=== PATIENT | female | born 1995 | race African-American/Black ===

== ENCOUNTER 2022-02-24 01:56 | Emergency (ER) | payer OTHER, SELFPAY ==
[2022-02-24 02:23] VITALS: BP 150/92; PULSE 96; RESP 16; TEMP 36.6; O2SAT 97; BMI 32.9
--- OUTSIDE RECORDS SUMMARY | 2022-02-24 03:06 | XMS_ITS | Continuity of Care Document ---
:1996 Author Organization [facility] ic Address [address] [place] [address]- Care Team Providers Name Role Phone Roni ROLDAN, Britton Simon Primary Care Physician Encounter [facility] [place] Date(s): 05/20/19 - 05/30/[address] [address]- [facility] Attending Physician: Alden Palma Admitting Physician: Alden Palma Referring Physician: Alden Palma Allergies, Adverse Reactions, Alerts Substance Reaction Severity Status NKA Active Immunizations Given and Recorded Vaccine Date Status Refusal Reason tetanus/diphtheria/pertussis, acel(Tdap) 03/23/19 Given tetanus/diphtheria/pertussis, acel(Tdap) 03/12/15 Given influenza virus vaccine, inactivated 01/26/19 Given influenza virus vaccine, inactivated 03/12/15 Given Human Papillomavirus Vaccine1 04/12/15 Given 1Result Comment: [04/12/2015] given by Susana Fonseca CNM Medications Multivitamins with Folic Acid 1 mg oral tablet 1 tablet, By Mouth, Daily, # 90 tablet, 3 Refills, Maintenance, 11/02/18 14:20:00 EDT, Tablet, 1 tablet By Mouth Daily Start Date: 11/02/18 Status: Ordered Social History Social History Type Response Smoking Status Never (less than 100 in life time) entered on: 11/02/18 Sex Female
--- OUTSIDE RECORDS SUMMARY | 2022-02-24 03:06 | XMS_ITS | Continuity of Care Document ---
:1996 Author Organization [facility] Address [address] [place] [address]- Care Team Providers Name Role Phone Roni ROLDAN, Britton Simon Primary Care Physician [place] [facility] [place] - 07/15/[address] [address]- [facility] Encounter Diagnosis Gonorrhea (Final) - 07/15/19 Discharge Disposition: A-D/C Home Attending Physician: Jayson ROLDAN, Maddison Freitas Admitting Physician: Maddison Tyler MD Referring Physician: Not on Staff, Referring MD Allergies, Adverse Reactions, Alerts Substance Reaction Severity Status NKA Active Immunizations Given and Recorded Vaccine Date Status Refusal Reason tetanus/diphtheria/pertussis, acel(Tdap) 03/23/19 Given tetanus/diphtheria/pertussis, acel(Tdap) 03/12/15 Given influenza virus vaccine, inactivated 01/26/19 Given influenza virus vaccine, inactivated 03/12/15 Given Human Papillomavirus Vaccine1 04/12/15 Given 1Result Comment: [04/12/2015] given by Susana Fonseca [facility] Medications acetaminophen 325 mg oral tablet 650 mg, By Mouth, Every 6 hours, PRN, # 60 tablet, Refills 0, Tot. Refills 0, Maintenance, Pain , Mild, 06/25/19 6:50:00 EDT, Route to Pharmacy Electronically, [facility]/pharmacy #[id number], 160, cm, 06/25/19 2:10:00 EDT, Height, 80.5, kg, 06/23/19 13:35:00 EDT,... Start Date: 06/25/19 Status: Orderedibuprofen 800 mg oral tablet 800 mg, 1, tablet, By Mouth, Every 8 hours, PRN, # 60 tablet, Refills 0, Tot. Refills 0, Maintenance, Pain , Moderate, 06/25/19 6:50:00 EDT, Route to Pharmacy Electronically, [facility]/pharmacy #[id number], 160, cm, 06/25/19 2:10:00 EDT, Height, 80.5, kg, ... Start Date: 06/25/19 Status: OrderedPrenatal Multivitamins with Folic Acid 1 mg oral tablet 1 tablet, By Mouth, Daily, # 90 tablet, 3 Refills, Maintenance, 11/02/18 14:20:00 EDT, Tablet, 1 tablet By Mouth Daily Start Date: 11/02/18 Status: Ordered Vital Signs Most recent to oldest [Reference Range]: 1 2 Height 160 cm 160 cm (07/15/19 4:46 PM) (07/15/19 2:05 PM) Weight 71.5 kg 71.5 kg (07/15/19 4:46 PM) (07/15/19 2:05 PM) Oxygen Saturation [94-100 %] 100 % 99 % (07/15/19 4:46 PM) (07/15/19 2:05 PM) Pulse Rate [55-90 bpm] 88 bpm 110 bpm (07/15/19 4:46 PM) *H* (07/15/19 2:05 PM) Body Mass Index [18.5-24.99] 27.93 27.93 *H* *H* (07/15/19 4:46 PM) (07/15/19 2:05 PM) Blood Pressure [90-138/55-84 mm Hg] 138/80 mm Hg 128/ 78 mm Hg (07/15/19 4:46 PM) (07/15/19 2:05 PM) Respiratory Rate [16-30 br/min] 18 br/min 18 br/mi n (07/15/19 4:46 PM) (07/15/19 2:05 PM) Temperature [96.8-100.4 DegF] 98.2 DegF 98.2 DegF (07/15/19 4:46 PM) (07/15/19 2:05 PM) Mode of Delivery (Oxygen) Room air Room air (07/15/19 4:46 PM) (07/15/19 2:05 PM) Blood pressure sites Arm, right Arm, left (07/15/19 4:46 PM) (07/15/19 2:05 PM) Temperature Route Oral Oral (07/15/19 4:46 PM) (07/15/19 2:05 PM) Dry Weight 71.5 kg 71.5 kg (07/15/19 4:46 PM) (07/15/19 2:05 PM) Weight Obtained Via Standing scale (07/15/19 2:05 PM) Dry Weight Obtained Via Standing scale (07/15/19 2:05 PM) Social History Social History Type Response Smoking Status Never (less than 100 in life time) entered on: 11/02/18 Sex
--- OUTSIDE RECORDS SUMMARY | 2022-02-24 03:06 | XMS_ITS | Continuity of Care Document ---
:1996 Author Organization [facility] Address Unavailable , Care Team Providers Name Role Phone Ronni CHEN, Pratibha Primary Care Physician [place] [facility] [place] 06/14/21 [facility] Allergies, Adverse Reactions, Alerts No Known Allergies Immunizations Given and Recorded Vaccine Date Status Refusal Reason tetanus/diphtheria/pertussis, acel(Tdap) 03/23/19 Given tetanus/diphtheria/pertussis, acel(Tdap) 03/12/15 Given influenza virus vaccine, inactivated 01/26/19 Given influenza virus vaccine, inactivated 03/12/15 Given Human Papillomavirus Vaccine1 04/12/15 Given 1Result Comment: [04/12/2015] given by Susana Fonseca [facility] Medications acetaZOLAMIDE 500 mg oral capsule, extended release 500 mg, 1, capsule, By Mouth, 2 times a day, # 180 capsule, Refills 3, Tot. Refills 3, Maintenance, 05/29/21 9:50:00 EST, Route to Pharmacy Electronically, [facility]/pharmacy #[id number], Partial fill upon patientrequest if the prescription is for a schedule II... Start Date: 05/29/21 Status: Ordered Problem List Condition Effective Dates Status Health Status Informant Anxiety(Confirmed) Active IIH (idiopathic intracranial Active hypertension)(Confirmed) Papilledema of both eyes(Confirmed) Active Obese class I(Confirmed) Active Social History Social History Type Response Smoking Status Never (less than 100 in life time) entered on: 11/02/18 Sex
--- OUTSIDE RECORDS SUMMARY | 2022-02-24 03:06 | XMS_ITS | Continuity of Care Document ---
:1996 Author Organization [facility] ic Address [address] [place] [address]- Care Team Providers Name Role Phone Roni ROLDAN, Britton Simon Primary Care Physician Encounter [facility] [place] Date(s): 04/22/19 - 07/24/[address] [address]- [facility] Attending Physician: Not on Staff, Attending MD Allergies, Adverse Reactions, Alerts Substance Reaction Severity Status NKA Active Immunizations Given and Recorded Vaccine Date Status Refusal Reason tetanus/diphtheria/pertussis, acel(Tdap) 03/23/19 Given tetanus/diphtheria/pertussis, acel(Tdap) 03/12/15 Given influenza virus vaccine, inactivated 01/26/19 Given influenza virus vaccine, inactivated 03/12/15 Given Human Papillomavirus Vaccine1 04/12/15 Given 1Result Comment: [04/12/2015] given by Susana Fonseca [facility] Medications acetaminophen 325 mg oral tablet 650 mg, By Mouth, Every 6 hours, PRN, # 60 tablet, Refills 0, Tot. Refills 0, Maintenance, Pain , Mild, 06/25/19 6:50:00 EDT, Route to Pharmacy Electronically, [facility]/pharmacy #[id number], 160, cm, 06/25/19 2:10:00 EDT, Height, 80.5, kg, 06/23/19 13:35:00 EDT,... Start Date: 06/25/19 Status: Orderedibuprofen 800 mg oral tablet 800 mg, 1, tablet, By Mouth, Every 8 hours, PRN, # 60 tablet, Refills 0, Tot. Refills 0, Maintenance, Pain , Moderate, 06/25/19 6:50:00 EDT, Route to Pharmacy Electronically, [facility]/pharmacy #[id number], 160, cm, 06/25/19 2:10:00 EDT, Height, [...]
--- OUTSIDE RECORDS SUMMARY | 2022-02-24 03:06 | XMS_ITS | Continuity of Care Document ---
:1996 Author Organization [facility] Address [address] [place] [address]- Care Team Providers Name Role Phone Not on Staff, PCP Primary Care Physician Unavailable Encounter [facility] Date(s): 12/09/19 - 01/08/20 [facility] [address] [place] [address]- [facility] Allergies, Adverse Reactions, Alerts Substance Reaction Severity Status NKA Active Immunizations Given and Recorded Vaccine Date Status Refusal Reason tetanus/diphtheria/pertussis, acel(Tdap) 03/23/19 Given tetanus/diphtheria/pertussis, acel(Tdap) 03/12/15 Given influenza virus vaccine, inactivated 01/26/19 Given influenza virus vaccine, inactivated 03/12/15 Given Human Papillomavirus Vaccine1 04/12/15 Given 1Result Comment: [04/12/2015] given by Susana Fonseca CNM Social History Social History Type Response Smoking Status Never (less than 100 in life time) entered on: 11/02/18 Sex
--- OUTSIDE RECORDS SUMMARY | 2022-02-24 03:06 | XMS_ITS | Continuity of Care Document ---
:1996 Author Organization [facility] ic Address [address] [place] [address]- Care Team Providers Name Role Phone Roni ROLDAN, Britton Simon Primary Care Physician En[place] [facility] [place] Date(s): 06/25/19 - 07/28/[address] [address]- [facility] Attending Physician: Not on Staff, Attending MD Allergies, Adverse Reactions, Alerts Substance Reaction Severity Status NKA Active Immunizations Given and Recorded Vaccine Date Status Refusal Reason tetanus/diphtheria/pertussis, acel(Tdap) 03/23/19 Given tetanus/diphtheria/pertussis, acel(Tdap) 03/12/15 Given influenza virus vaccine, inactivated 01/26/19 Given influenza virus vaccine, inactivated 03/12/15 Given Human Papillomavirus Vaccine1 04/12/15 Given 1Result Comment: [04/12/2015] given by Susana Fonseca [facility] Medications acetaminophen 325 mg oral tablet 650 mg, By Mouth, Every 6 hours, PRN, # 60 tablet, Refills 0, Tot. Refills 0, Maintenance, Pain , Mild, 06/25/19 6:50:00 EDT, Route to Pharmacy Electronically, [facility]/pharmacy #[id number], 160, cm, 06/25/19 2:10:00 EDT, Height, 80.5, kg, 06/23/19 13:35:00 EDT,... Start Date: 06/25/19 Status: Orderedibuprofen 800 mg oral tablet 800 mg, 1, tablet, By Mouth, Every 8 hours, PRN, # 60 tablet, Refills 0, Tot. Refills 0, Maintenance, Pain , Moderate, 06/25/19 6:50:00 EDT, Route to Pharmacy Electronically, [facility]/pharmacy #[id number], 160, cm, 06/25/19 2:10:00 EDT, [...]
--- OUTSIDE RECORDS SUMMARY | 2022-02-24 03:06 | XMS_ITS | Continuity of Care Document ---
:1996 Author Organization [facility] ic Address [address] [place] [address]- Care Team Providers Name Role Phone Roni ROLDAN, Britton Simon Primary Care Physician Encounter [facility] [place] Date(s): 04/22/19 - 07/17/[address] [address]- [facility] Attending Physician: Not on Staff, Attending MD Allergies, Adverse Reactions, Alerts Substance Reaction Severity Status NKA Active Immunizations Given and Recorded Vaccine Date Status Refusal Reason tetanus/diphtheria/pertussis, acel(Tdap) 03/23/19 Given tetanus/diphtheria/pertussis, acel(Tdap) 03/12/15 Given influenza virus vaccine, inactivated 01/26/19 Given influenza virus vaccine, inactivated 03/12/15 Given Human Papillomavirus Vaccine1 04/12/15 Given 1Result Comment: [04/12/2015] given by Susana Fonseca [facility] Medications acetaminophen 325 mg oral tablet 650 mg, By Mouth, Every 6 hours, PRN, # 60 tablet, Refills 0, Tot. Refills 0, Maintenance, Pain , Mild, 06/25/19 6:50:00 EDT, Route to Pharmacy Electronically, [facility]/pharmacy #[id number], 160, cm, 06/25/19 2:10:00 EDT, Height, 80.5, kg, 06/23/19 13:35:00 EDT,... Start Date: 06/25/19 Status: Orderedibuprofen 800 mg oral tablet 800 mg, 1, tablet, By Mouth, Every 8 hours, PRN, # 60 tablet, Refills 0, Tot. Refills 0, Maintenance, Pain , Moderate, 06/25/19 6:50:00 EDT, Route to Pharmacy Electronically, [facility]/pharmacy #[id number], 160, cm, 06/25/19 2:10:00 EDT, [...]
--- OUTSIDE RECORDS SUMMARY | 2022-02-24 03:06 | XMS_ITS | Continuity of Care Document ---
:1996 Author Organization [facility] Address [address] [place] [address]- Care Team Providers Name Role Phone Not on Staff, PCP Primary Care Physician Unavailable [facility]counter [facility] Date(s): 10/22/19 - 10/22/[address] [address]- [facility] Encounter Diagnosis Anxiety (Final) - 10/22/19 Discharge Disposition: A-D/C Home Attending Physician: Luna Oswald MD Admitting Physician: Luna Oswald MD Referring Physician: Not on Staff, Referring MD Allergies, Adverse Reactions, Alerts Substance Reaction Severity Status NKA Active Immunizations Given and Recorded Vaccine Date Status Refusal Reason tetanus/diphtheria/pertussis, acel(Tdap) 03/23/19 Given tetanus/diphtheria/pertussis, acel(Tdap) 03/12/15 Given influenza virus vaccine, inactivated 01/26/19 Given influenza virus vaccine, inactivated 03/12/15 Given Human Papillomavirus Vaccine1 04/12/15 Given 1Result Comment: [04/12/2015] given by Susana Fonseca [facility] Medications No Known Medications Vital Signs Most recent to oldest 1 2 3 [Reference Range]: Oxygen Saturation [94-100 %] 100 % 100 % 99 % (10/22/19 7:27 PM) (10/22/19 2:34 PM) (10/22/19 2:1 3 PM) Pulse Rate [55-90 bpm] 67 bpm 92 bpm 86 bpm (10/22/19 7:27 PM) *H* (10/22/19 2:13 PM) (10/22/19 2:34 PM) Blood Pressure [90-138/55-84 mm 122/68 mm Hg 127/70 mm Hg Hg] (10/22/19 7:27 PM) (10/22/19 2:34 PM) Respiratory Rate [16-30 br/min] 16 br/min 18 br/min 16 br/min (10/22/19 7:27 PM) (10/22/19 2:34 PM) (10/22/19 2:1 3 PM) Temperature [96.8-100.4 DegF] 98.3 DegF (10/22/19 2:34 PM) Liters per Minute 0 L/min (10/22/19 2:34 PM) Mode of Delivery (Oxygen) Room air Room air Room a ir (10/22/19 7:27 PM) (10/22/19 2:34 PM) (10/22/19 2:1 3 PM) Blood pressure sites Arm, right (10/22/19 7:27 PM) Temperature Route Oral (10/22/19 2:34 PM) Social History Social History Type Response Smoking Status Never (less than 100 in life time) entered on: 11/02/18 Sex
--- OUTSIDE RECORDS SUMMARY | 2022-02-24 03:06 | XMS_ITS | Continuity of Care Document ---
:1996 Author Organization [facility] ic Address [address] [place] [address]- Care Team Providers Name Role Phone Roni ROLDAN, Britton Simon Primary Care Physician Encounter [facility] [place] Date(s): 04/08/19 - 04/18/[address] [address]- [facility] Attending Physician: Alden Palma Admitting [...] [04/12/2015] given by Susana Fonseca CNM Medications doxylamine 25 mg oral tablet See Instructions, one half tablet 2 x day, # 8 tablet, 1 Refills, Maintenance, 12/08/18 14:49:21 EDT Start Date: 12/08/18 Status: OrderedPrenatal Multivitamins with Folic Acid 1 mg oral tablet 1 tablet, By Mouth, Daily, # 90 tablet, 3 Refills, Maintenance, 11/02/18 14:20:00 EDT, Tablet, 1 tablet By Mouth Daily Start Date: 11/02/18 Status: Ordered Social History Social History Type Response Smoking Status Never (less than 100 in life time) entered on: 11/02/18 Sex Female
--- OUTSIDE RECORDS SUMMARY | 2022-02-24 03:06 | XMS_ITS | Continuity of Care Document ---
:1996 Author Organization [facility] ic Address [address] [place] [address]- Care Team Providers Name Role Phone Shaan ROLDAN, Katerine Muhammad Primary Care Physician Encounter [facility] Date(s): 08/04/19 - 09/03/[address] [address]- [facility] Attending Physician: Alden Palma Admitting [...]
--- OUTSIDE RECORDS SUMMARY | 2022-02-24 03:06 | XMS_ITS | Continuity of Care Document ---
:1996 Author Organization [facility] Address [address] [place] [address]- Care Team Providers Name Role Phone Pratibha Rudolph NP Primary Care Physician Encounter [facility] [place] Date(s): 09/11/21 - 10/11/21 [facility] [address] [address] Attending Physician: Alden Palma Admitting Physician: Alden Palma Referring Physician: AdmtrAlden Allergies, Adverse Reactions, Alerts No Known Allergies Immunizations Given and Recorded Vaccine Date Status Refusal Reason tetanus/diphtheria/pertussis, acel(Tdap) 03/23/19 Given tetanus/diphtheria/pertussis, acel(Tdap) 03/12/15 Given influenza virus vaccine, inactivated 01/26/19 Given influenza virus vaccine, inactivated 03/12/15 Given Human Papillomavirus Vaccine1 04/12/15 Given 1Result Comment: [04/12/2015] given by Susana Fonseca CNM Medications acetaZOLAMIDE 500 mg oral capsule, extended release 500 mg, 1, capsule, By Mouth, 2 times a day, # 180 capsule, Refills 3, Tot. Refills 3, Maintenance, 05/29/21 9:50:00 EST, Route to Pharmacy Electronically, [facility]/pharmacy #[id number], Partial fill upon patientrequest if the [...]
--- OUTSIDE RECORDS SUMMARY | 2022-02-24 03:06 | XMS_ITS | Continuity of Care Document ---
:1996 Author Organization [facility] Address [address] [place] [address]- Care Team Providers Name Role Phone Pratibha Rudolph NP Primary Care Physician Encounter [facility] [place] Date(s): 07/18/20 - 08/17/20 [facility] [address] [place] [address]- Attending Physician: Alden Palma Admitting Physician: Alden [...] Comment: [04/12/2015] given by Susana Fonseca CNM Problem List Condition Effective Dates Status Health Status Informant Anxiety(Confirmed) Active Social History Social History Type Response Smoking Status Never (less than 100 in life time) entered on: 11/02/18 Sex
--- OUTSIDE RECORDS SUMMARY | 2022-02-24 03:06 | XMS_ITS | Continuity of Care Document ---
:1996 Author Organization [facility] Address [address] [place] [address]- Care Team Providers Name Role Phone Roni ROLDAN, Britton Simon Primary Care Physician Encounter [facility] Date(s): 06/23/19 - 06/25/[address] [address]- [facility] Discharge Disposition: A-D/C Home Attending Physician: Henna Malone MD Admitting Physician: Henna Malone MD Referring Physician: Henna Malone MD Allergies, Adverse Reactions, Alerts Substance Reaction Severity Status NKA Active Immunizations Given and Recorded Vaccine Date Status Refusal Reason tetanus/diphtheria/pertussis, acel(Tdap) 03/23/19 Given tetanus/diphtheria/pertussis, acel(Tdap) 03/12/15 Given influenza virus vaccine, inactivated 01/26/19 Given influenza virus vaccine, inactivated 03/12/15 Given Human Papillomavirus Vaccine1 04/12/15 Given 1Result Comment: [04/12/2015] given by Susana Fonseca [facility] Medications acetaminophen 325 mg oral tablet 650 mg, By Mouth, Every 6 hours, PRN, # 60 tablet, Refills 0, Tot. Refills 0, Maintenance, Pain , Mild, 06/25/19 6:50:00 EDT, Route to Pharmacy Electronically, [facility]/pharmacy #[id number], 160, cm, 06/25/19 2:10:00 EDT, Height, 80.5, kg, 06/23/19 13:35:00 EDT,... Start Date: 06/25/19 Status: Orderedibuprofen 800 mg oral tablet 800 mg, 1, tablet, By Mouth, Every 8 hours, PRN, # 60 tablet, Refills 0, Tot. Refills 0, Maintenance, Pain , Moderate, 06/25/19 6:50:00 EDT, Route to Pharmacy Electronically, [facility]/pharmacy #[id number], 160, cm, 06/25/19 2:10:00 EDT, Height, 80.5, kg, ... Start Date: 06/25/19 Status: OrderedPrenatal Multivitamins with Folic Acid 1 mg oral tablet 1 tablet, By Mouth, Daily, # 90 tablet, 3 Refills, Maintenance, 11/02/18 14:20:00 EDT, Tablet, 1 tablet By Mouth Daily Start Date: 11/02/18 Status: Ordered Vital Signs Most recent to oldest 1 2 3 [Reference Range]: Height 160 cm 160 cm 160 cm (06/25/19 8:30 AM) (06/25/19 1:00 AM) (06/24/19 8:5 0 PM) Weight 80.5 kg 80.5 kg (06/23/19 1:35 PM) (06/23/19 10:37 AM) Oxygen Saturation [94-100 %] 99 % 99 % 100 % (06/23/19 2:30 PM) (06/23/19 2:12 PM) (06/23/19 2:0 0 PM) Pulse Rate [55-90 bpm] 91 bpm 80 bpm 91 bpm *H* (06/25/19 1:00 AM) *H* (06/25/19 8:30 AM) (06/24/19 8:50 PM) Body Mass Index [18.5-24.99] 31.45 *>HHI* (06/23/19 1:35 PM) Blood Pressure [90-138/55-84 137/84 mm Hg 134/83 mm Hg 139 /88 mm Hg mm Hg] (06/25/19 8:30 AM) (06/25/19 1:00 AM) *H* (06/24/19 8:50 PM ) Respiratory Rate [16-30 18 br/min 18 br/min 18 br/mi n br/min] (06/25/19 10:07 AM) (06/25/19 10:06 AM) (06/25/19 8 :30 AM) Temperature [96.8-100.4 DegF] 97.8 DegF 98.2 DegF 98 .2 DegF (06/25/19 8:30 AM) (06/24/19 8:50 PM) (06/24/19 3:0 5 PM) Blood pressure sites Arm, right Arm, right Arm, right (06/24/19 3:05 PM) (06/24/19 9:06 AM) (06/23/19 1:3 5 PM) Temperature Route Oral Oral Oral (06/25/19 8:30 AM) (06/24/19 8:50 PM) (06/24/19 3:0 5 PM) Dry Weight 80.5 kg (06/23/19 1:35 PM) Weight Obtained Via Standing scale (06/23/19 10:37 AM) Sensory deficits None (06/23/19 1:35 PM) Mobility assistance Independent (06/23/19 1:35 PM) Social History Social History Type Response Smoking Status Never (less than 100 in life time) entered on: 11/02/18 Sex
--- OUTSIDE RECORDS SUMMARY | 2022-02-24 03:06 | XMS_ITS | Continuity of Care Document ---
:1996 Author Organization [facility] Address Unavailable , Care Team Providers Name Role Phone Pratibha Rudolph NP Primary Care Physician [place] [facility] [place] Date(s): 08/14/21 - 09/13/21 [facility] Attending Physician: Alden Palma Admitting Physician: Alden Palma Referring Physician: AdmtrAlden Allergies, Adverse Reactions, Alerts No Known Allergies Immunizations Given and Recorded Vaccine Date Status Refusal Reason tetanus/diphtheria/pertussis, acel(Tdap) 03/23/19 Given tetanus/diphtheria/pertussis, acel(Tdap) 03/12/15 Given influenza virus vaccine, inactivated 01/26/19 Given influenza virus vaccine, inactivated 03/12/15 Given Human Papillomavirus Vaccine1 04/12/15 Given 1Result Comment: [04/12/2015] given by Susana Fonseca [facility] Medications acetaZOLAMIDE 500 mg oral capsule, extended release 500 mg, 1, capsule, By Mouth, 2 times a day, # 180 capsule, Refills 3, Tot. Refills 3, Maintenance, 05/29/21 9:50:00 EST, Route to Pharmacy Electronically, [facility]/pharmacy #[id number], Partial fill upon patientrequest if the [...]
--- OUTSIDE RECORDS SUMMARY | 2022-02-24 03:07 | XMS_ITS | Continuity of Care Document ---
:1996 Author Organization [facility] Address [address] [place] [address]- Care Team Providers Name Role Phone Roni ROLDAN, Britton Simon Primary Care Physician Encounter [facility] Date(s): 04/08/19 - 04/08/[address] [address]- [facility] Attending Physician: Minerva Smith MD Allergies, Adverse Reactions, Alerts Substance Reaction Severity Status NKA Active Immunizations Given and Recorded Vaccine Date Status Refusal Reason tetanus/diphtheria/pertussis, acel(Tdap) 03/23/19 Given tetanus/diphtheria/pertussis, acel(Tdap) 03/12/15 Given influenza virus vaccine, inactivated 01/26/19 Given influenza virus vaccine, inactivated 03/12/15 Given Human Papillomavirus Vaccine1 04/12/15 Given 1Result Comment: [04/12/2015] given by Susana Fonseca [facility] Medications doxylamine 25 mg oral tablet See [...]
--- OUTSIDE RECORDS SUMMARY | 2022-02-24 03:07 | XMS_ITS | Continuity of Care Document ---
:1996 Author Organization [facility] Address [address] [place] [address]- Care Team Providers Name Role Phone Pratibha Rudolph NP [id number] Date[facility] 04/19/20 - 08/17/20 [facility] [address] [place] [id number]- Attending Physician: Pratibha Rudolph NP Allergies, Adverse Reactions, Alerts Substance Reaction Severity [...]
--- OUTSIDE RECORDS SUMMARY | 2022-02-24 03:07 | XMS_ITS | Continuity of Care Document ---
:1995 Author Organization [facility] Address [address] [place] [address]- Care Team Providers Name Role Phone Pratibha Rudolph NP Primary Care Physician Encounter [facility] Date(s): 05/14/21 - 05/14/[address] [address]- Discharge Disposition: A-D/C Home Attending Physician: Rex Oseguera MD Admitting Physician: Rex Oseguera MD Referring Physician: Not on Staff, Referring MD Allergies, Adverse Reactions, Alerts No Known Allergies Immunizations Given and Recorded Vaccine Date Status Refusal Reason tetanus/diphtheria/pertussis, acel(Tdap) 03/23/19 Given tetanus/diphtheria/pertussis, acel(Tdap) 03/12/15 Given influenza virus vaccine, inactivated 01/26/19 Given influenza virus vaccine, inactivated 03/12/15 Given Human Papillomavirus Vaccine1 04/12/15 Given 1Result Comment: [04/12/2015] given by Susana Fonseca [facility] Medications acetaZOLAMIDE 500 mg oral capsule, extended release 500 mg, 1, capsule, By Mouth, 2 times a day, # 30 capsule, Refills 0, Tot. Refills 0, Maintenance, 05/14/21 19:16:00 EST, Route to Pharmacy Electronically, [facility]/pharmacy #[id number], Partial fill upon patientrequest if the prescription is for a schedule II... Start Date: 05/14/21 Status: Ordered Problem List Condition Effective Dates Status Health Status Informant Anxiety(Confirmed) Active Obese class I(Confirmed) Active Vital Signs Most recent to oldest 1 2 3 [Reference Range]: Height 158 cm 158 cm (05/14/21 6:21 PM) (05/14/21 3:41 PM) Weight 86.5 kg 86.5 kg (05/14/21 6:21 PM) (05/14/21 3:41 PM) Oxygen Saturation [94-100 100 % 100 % 100 % %] (05/14/21 8:30 PM) (05/14/21 6:21 PM) (05/14/21 3:4 1 PM) Pulse Rate [55-90 bpm] 88 bpm 80 bpm 95 bpm (05/14/21 8:30 PM) (05/14/21 6:21 PM) *H* (05/14/21 3:41 PM ) Body Mass Index 34.65 [18.5-24.99] *>HHI* (05/14/21 6:21 PM) Blood Pressure 109/56 mm Hg 124/77 mm Hg 152/84 mm Hg [90-138/55-84 mm Hg] (05/14/21 8:30 PM) (05/14/21 6:21 PM) *H* (05/14/21 3:41 PM ) Respiratory Rate [16-30 16 br/min 16 br/min 20 br/mi n br/min] (05/14/21 8:30 PM) (05/14/21 6:21 PM) (05/14/21 3:4 1 PM) Temperature [96.8-100.4 98.8 DegF 98.5 DegF 98.7 Deg F DegF] (05/14/21 8:30 PM) (05/14/21 3:41 PM) (05/14/21 3:0 7 PM) Mode of Delivery (Oxygen) Room air Room air Room a ir (05/14/21 8:30 PM) (05/14/21 6:21 PM) (05/14/21 3:4 1 PM) Blood pressure sites Arm, left Arm, left Arm, right (05/14/21 8:30 PM) (05/14/21 6:21 PM) (05/14/21 3:4 1 PM) Temperature Route Oral Oral Oral (05/14/21 8:30 PM) (05/14/21 3:41 PM) (05/14/21 3:0 7 PM) Weight Obtained Via Patient/family stated (05/14/21 3:41 PM) Social History Social History Type Response Smoking Status Never (less than 100 in life time) entered on: 11/02/18 Sex
== END 2022-02-24 03:20 | disposition left against medical advice (07) ==
PROVIDERS: Emergency Provider Emergency Medicine
DX: R10.2 Pelvic and perineal pain (principal)
CPT/HCPCS: 99281

== ENCOUNTER 2024-05-19 15:35 | Emergency (ER) | payer OTHER, SELFPAY ==
--- NOTE | ~2024-05-19 | US_ITS ---
CLINICAL HISTORY: lmp 12 13 24, vag bleeding LLQ cramping Early OB ultrasound. Transabdominal and transvaginal images were obtained. Findings: There is an intrauterine gestational sac with a yolk sac and embryo. Estimated gestational age based on crown-rump length 5 weeks 6 days. No cardiac activity is identified. The gestational sac is in the mid to lower portion of the uterus with probable mild hemorrhage in the uterine cavity. There is a probable small complex corpus luteum in the right ovary. Left ovary unremarkable. No significant free fluid is identified. Impression: There is an early intrauterine gestational sac as described. The appearance is suspicious for an in progress however technically indeterminate. Follow-up as clinically warranted. This document has been electronically signed by: Ernie Riggs MD on 05/19/2024 18:13:00
[2024-05-19 15:45] VITALS: BP 148/89; PULSE 89; RESP 20; TEMP 36.3; O2SAT 99; BMI 37.1
--- NOTE | 2024-05-19 16:11 | ED_ITS ---
HPI - Female Genitourinary General Chief complaint: Vaginal Bleeding Stated complaint: 2 +preg test/about an hour ago started bleeding? Time Seen by Provider: 05/19/24 21:40 Source: patient Mode of arrival: ambulatory Limitations: no limitations History of Present Illness ED Provider: HPI Narrative: Patient about 6 weeks LMP 03/26 been having vaginal bleeding and lower abdominal cramps started earlier today past to be clots after the ultrasound , ultrasound showed IUP 5 weeks 6days with sac lying in the lower uterine area with possible hemorrhage in the area patient's blood type is O positive patient is a 6para 2 with 3 MTPs Related Data Allergies Allergy/AdvReac Type Severity Reaction Status Date / Time No Known Allergies Allergy Verified 05/19/24 15:48 Review of Systems 2 Review of Systems: Yes all other systems are reviewed and are negative PMFSH Past Medical History Medical History HTN (hypertension) Social History Social History Smoked in Last 30 Days: No Use of substances other than those prescribed or required for medical reasons: No Advance Directives: No Advance Directives Information Provided: No Do you have a plan to hurt others: No Plan Physical Exam 2 Vital Signs: Vital Signs: Last Vital Signs Temp 98.1 F 05/19/24 21:51 Pulse 96 05/19/24 21:51 Resp 20 05/19/24 21:51 BP 129/67 05/19/24 21:51 Pulse Ox 97 05/19/24 21:51 O2 Del Method Room Air 05/19/24 21:51 BMI result Body Mass Index 37.1 Appearance: Alert. Oriented X3. No acute distress. Eyes: No pallor or icterus ENT: Pharynx normal. Oral Mucosa moist Neck: Normal inspection. Neck supple. CVS: Normal heart rate and rhythm. Pulses normal. Respiratory: No respiratory distress. Equal air entry bilateral, Abdomen: Soft and nontender. Bowel sounds are present, no mass palpable, no CVA tenderness pelvis: Small amount of blood coming out from the os no blood clots noticed Skin: Skin warm and dry. Normal skin color. Normal skin turgor. Extremities: No lower extremity edema. No calf tenderness Neuro: Oriented X 3. Course Course Course Narrative: This is a Rapid Medical Examination (RME) performed by Haroldo Li PA-C in triage. Full HPI, ROS, assessment and treatment plan per primary provider in the Main ED. 28 yo female A3, recent positive test at home (LMP 03/26/24) here for eval of vaginal bleeding that began approx 1 hour ago. reports left lower abd cramping. Plan: labs, preg, US Medical Decision Making Medical Decision Making MDM Narrative: Patient has likely been having miscarriage ultrasound of the pelvis shows IUP with gestational sac lying in the lower uterine area with blood around patient has a OB appointment next finger will follow up Differential Diagnosis Differential Diagnoses: The differential diagnosis associated with the presentation includes Lab Data [facility] Lab Attestation statement: I reviewed the patient's lab results. 05/19/24 16:43 05/19/24 16:43 Labs: Lab Results 05/19/24 Range/Units 16:43 WBC 11.3 H (4.8-10.8) X10*3/uL RBC 4.30 (4.20-5.50) X10*6/uL Hgb 12.7 (12.0-16.0) g/dl Hct 37.4 (37.0-47.0) % MCV 87.0 (80.0-98.0) fL MCH 29.5 (27.0-33.0) pg MCHC 34.0 (31.0-35.0) g/dl RDW 13.0 (11.0-16.0) % Plt Count 271 (160-400) X10*3/uL MPV 9.5 (9.4-12.3) fL Immature Gran % (Auto) 0.4 (0.0-0.4) % Neut % (Auto) 68.5 (45-73) % Lymph % (Auto) 23.6 (20-40) % [place] % (Auto) 6.2 (2-11) % Eos % (Auto) 1.0 (0-4) % Baso % (Auto) 0.3 (0-2) % Lymph # (Auto) 2.7 (1.2-4.9) X10*3/uL [place] # (Auto) 0.7 (0.1-1.2) X10*3/uL Eos # (Auto) 0.1 (0.0-0.4) X10*3/uL Baso # (Auto) 0.0 (0.0-0.2) X10*3/uL Abs Immat Gran (auto) 0.04 H (0.00-0.03) X10*3/uL Absolute Neuts (auto) 7.7 (2.0-8.3) x10*3/uL Absolute Nucleated RBC 0.000 (0.0-0.012) X10*3/uL Nucleated RBC % (auto) 0.0 (0.0-0.2) /100WBC Sodium 138 (135-145) mmol/L Potassium 3.4 (3.3-5.1) mmol/L Chloride 108 (96-108) mmol/L Carbon Dioxide 22 (22-29) mmol/L Anion Gap 11 L (12-20) BUN 5 L (9-16) mg/dL Creatinine 0.70 (0.5-1.4) mg/dL Estim Creat Clear Calc 127.4 Estimated GFR > 60 Random Glucose 80 (60-115) mg/dL Calcium 9.5 (8.4-10.2) mg/dL Magnesium 1.9 (1.6-2.6) mg/dL Total Bilirubin 0.2 (0.0-1.0) mg/dL AST 20 (5-31) U/L ALT 15 (0-31) U/L Alkaline Phosphatase 58 (39-117) U/L Total Protein 8.2 H (6.5-8.0) g/dL Albumin 4.2 (3.5-5.0) g/dL Beta HCG, Quant 1305 mIU/mL Urine Color Yellow Urine Appearance Clear Urine pH 6.0 (5.0-9.0) Ur Specific [place] <= 1.005 (1.005-1.025) Urine Protein Negative (Neg-Trace) mg/dL Urine Glucose (UA) Negative (Negative) mg/dL Urine Ketones Negative (Negative) mg/dL Urine Blood Large (3+) H (Negative) Urine Nitrite Negative (Negative) Ur Leukocyte Esterase Negative (Negative) Urine RBC >20 H (0-2) /HPF Urine WBC 0-5 (0-5) /HPF Ur Squamous Epith Cells 0-2 (0-2) /HPF Urine Bacteria None Seen (None Seen) Hyaline Casts 0-2 (0-2) /LPF Urine Test POSITIVE H (NEGATIVE) Blood Type O Positive Antibody Screen NEGATIVE Radiology Impression Discussion of test interpretation with radiology: I have reviewed the radiologist's reading. Radiologist Impression: [address] [address] Ultrasound Report Signed Patient: Nery Vasquez MR#: [id number] : 1995 Acct:[id number] Age/Sex: 28 / F ADM Date: 05/19/24 Loc: HO.ED Attending Dr: Ordering Physician: Sarita Li Date of Service: 05/19/24 Procedure(s): US OB pelvic and transvaginal Accession Number(s): [id number] cc: Pratibha Rudolph [employer]; Sarita Li~ CLINICAL HISTORY: lmp 12 13 24, vag bleeding LLQ cramping Early OB ultrasound. Transabdominal and transvaginal images were obtained. Findings: There is an intrauterine gestational sac with a yolk sac and embryo. Estimated gestational age based on crown-rump length 5 weeks 6 days. No cardiac activity is identified. The gestational sac is in the mid to lower portion of the uterus with probable mild hemorrhage in the uterine cavity. There is a probable small complex corpus luteum in the right ovary. Left ovary unremarkable. No significant free fluid is identified. Impression: There is an early intrauterine gestational sac as described. The appearance is suspicious for an in progress however technically indeterminate. Follow-up as clinically warranted. This document has been electronically signed by: Ernie Riggs MD on 05/19/2024 18:13:00 Discharge Plan Discharge Clinical Impression: Threatened Patient Disposition: Home, Self-Care Instructions: Threatened Miscarriage (ED) Additional Instructions: Likely you have been having miscarriage Follow up with Ob G as scheduled Print Language: Bengali
[2024-05-19 16:52] LABS: MANUAL DIFF FLAG NO
[2024-05-19 16:54] LABS: Basophils Percent Auto 0.3 % (0-2); Eosinophils Absolute Auto 0.1 X10*3/uL (0.0-0.4); Hematocrit 37.4 % (37.0-47.0); Hemoglobin 12.7 g/dl (12.0-16.0); Imm Gran Abs Auto 0.04 X10*3/uL (0.00-0.03); Imm Gran Pct Auto 0.4 % (0.0-0.4); Lymphocytes Absolute Auto 2.7 X10*3/uL (1.2-4.9); Lymphocytes Percent Auto 23.6 % (20-40); Mean Corpuscular Hemoglobin 29.5 pg (27.0-33.0); Mean Platelet Volume 9.5 fL (9.4-12.3); Monocytes Absolute Auto 0.7 X10*3/uL (0.1-1.2); Monocytes Percent Auto 6.2 % (2-11); Neutrophils Absolute Auto 7.7 x10*3/uL (2.0-8.3); Neutrophils Percent Auto 68.5 % (45-73); Platelet Count 271 X10*3/uL (160-400); White Blood Count 11.3 X10*3/uL (4.8-10.8)
[2024-05-19 16:58] LABS: Appearance Urine Clear; Color Urine Yellow; Glucose Urine UA Negative (Negative); Leukocyte Esterase Urine Negative (Negative); Nitrite Urine Negative (Negative); Specific Gravity - Urine <= 1.005 (1.005-1.025); UMIC TRIGGER UACC YES; Urine Blood Large (3+) (Negative); Urine Ketones Negative (Negative); Urine Protein Negative (Neg-Trace)
[2024-05-19 17:00] LABS: Bacteria Urine None Seen (None Seen); Hyaline Casts Urine 0-2 /LPF (0-2); RBC Urine >20 /HPF (0-2); Squamous Epithelial Cell Urine 0-2 /HPF (0-2); WBC Urine 0-5 /HPF (0-5)
[2024-05-19 17:04] LABS: UPreg QC Valid YES; Urine Pregnancy POSITIVE (NEGATIVE)
[2024-05-19 17:19] LABS: Alanine Aminotransferase 15 U/L (0-31); Albumin Level 4.2 g/dL (3.5-5.0); Anion Gap 11 (12-20); Aspartate Amino Transferase 20 U/L (5-31); Bilirubin Total 0.2 mg/dL (0.0-1.0); Blood Urea Nitrogen 5 mg/dL (9-16); Calcium 9.5 mg/dL (8.4-10.2); Carbon Dioxide 22 mmol/L (22-29); Chloride 108 mmol/L (96-108); Creatinine Clr Calc Pharmacy 127.4; Estimated Glomerular Filt Rate > 60; Glucose Random 80 mg/dL (60-115); HCG Quantitative 1305 mIU/mL; Magnesium 1.9 mg/dL (1.6-2.6); Potassium 3.4 mmol/L (3.3-5.1); Sodium 138 mmol/L (135-145); Total Protein 8.2 g/dL (6.5-8.0)
[2024-05-19 17:31] LABS: Alkaline Phosphatase 58 U/L (39-117)
[2024-05-19 21:51] VITALS: BP 129/67; PULSE 96; RESP 20; TEMP 36.7; O2SAT 97
[2024-05-19 21:58] VITALS: BP 129/67; PULSE 96; RESP 20; TEMP 36.7; O2SAT 97
== END 2024-05-19 21:59 | disposition home or self-care (01) ==
PROVIDERS: Physician Assistant Medical; Emergency Provider Internal Medicine; PCP Nurse Practitioner Family
DX: O20.0 Threatened abortion (principal); R10.30 Lower abdominal pain, unspecified
CPT/HCPCS: 36415; 76801; 76817; 80053; 81001; 81025; 83735; 84702; 85025; 86850; 86900; 86901; 99284